=== PATIENT | female | born 1945 | race African-American/Black ===

== ENCOUNTER 2021-03-06 09:31 | Emergency (ER) | payer MEDICARE, MEDICAID ==
[~2021-03-06] VITALS: Ht 170.2 cm; Wt 86.5 kg
[2021-03-06] MEDS ORDERED: LABETALOL 5MG/ML SYR 20 MG/4 ML SYRINGE IV ONE (10:30)
[2021-03-06 10:54] LABS: BASOPHILS % 0.5 % (0.0-2.0); EOSINOPHILS % 0.2 % (0.0-5.0); LYMPHOCYTES % 19.8 % (20.0-50.0); MEAN CORPUSCULAR HEMOGLOBIN 26.8 pg (28.0-32.0); MEAN CORPUSCULAR VOLUME 82.4 fL (81.0-99.0); MONOCYTES % 4.1 % (2.0-8.0); NEUTROPHILS % 75.4 % (40.0-76.0); PLATELET 226 x1000/uL (130-400); RED BLOOD CELL COUNT 4.86 mill/uL (4.2-5.4); RED CELL DISTRIBUTION WIDTH 14.7 % (11.6-14.6)
[2021-03-06 11:04] LABS: CHLORIDE 107 mEq/L (98-107); INR 1.1; PROTHROMBIN TIME 11.3 sec (9.6-11.0)
[2021-03-06 11:08] LABS: ETHANOL BLOOD < 10 mg/dL
[2021-03-06 11:11] LABS: LDL CHOLESTEROL 58 mg/dL (5-100)
[2021-03-06] MEDS ORDERED: CONTAINER EMPTY IV NR ×2 (11:21→12:30)
[2021-03-06] MEDS ORDERED: ALTEPLASE IV NR ×2 (11:21→12:30)
[2021-03-06] MEDS ORDERED: *NO ASPIRIN X 24 HOURS XX SCH (11:21)
[2021-03-06] MEDS ORDERED: IOHEXOL-350 100 ML BOTTLE ONE (12:10)
[2021-03-06 12:15] VITALS: BP 155/99
[2021-03-06] MEDS ORDERED: ALTEPLASE 100MG/VIAL IV NR ×2 (12:30)
== END 2021-03-06 13:34 | disposition short-term general hospital (02) ==
LOC: EDBD 09:56 → ER 09:56 → CANBEDREQ 14:17
DX: I63.9 Cerebral infarction, unspecified (principal); I10 Essential (primary) hypertension; R77.8 Other specified abnormalities of plasma proteins; I11.0 Hypertensive heart disease with heart failure; I50.9 Heart failure, unspecified; E11.9 Type 2 diabetes mellitus without complications; Z98.890 Other specified postprocedural states
CPT/HCPCS: 36415; 70450; 70496; 70498; 71045; 80053; 80320; 82962; 83721; 84484; 85025; 85610; 93005; 96374; 99291; J2997; J3490; J7060; Q9967; 99285; G0480

== ENCOUNTER 2021-05-12 22:54 | Inpatient (IN) | payer MEDICARE, MEDICAID ==
[~2021-05-12] VITALS: Ht 167.6 cm; Wt 89.8 kg
[~2021-05-12 22:54] MED LIST: ASPI-1406 MT; CLON-457 PO; FURO-152 PO; METF-414 MT
[2021-05-13 00:27] LABS: BASOPHILS % 0.4 % (0.0-2.0); EOSINOPHILS % 1.6 % (0.0-5.0); HEMATOCRIT. 31.2 % (36.0-48.0); HEMOGLOBIN. 10.2 g/dL (12.0-16.0); MEAN CORPUSCULAR HEMOGLOBIN 26.7 pg (28.0-32.0); MEAN CORPUSCULAR VOLUME 81.9 fL (81.0-99.0); MEAN PLATELET VOLUME 9.2 fl (7.4-10.4); MONOCYTES % 4.7 % (2.0-8.0); NEUTROPHILS % 71.3 % (40.0-76.0); PLATELET 143 x1000/uL (130-400); RED BLOOD CELL COUNT 3.81 mill/uL (4.2-5.4); RED CELL DISTRIBUTION WIDTH 19.1 % (11.6-14.6)
[2021-05-13 00:32] LABS: CHLORIDE 106 mEq/L (98-107)
[2021-05-13 00:36] LABS: PARTIAL THROMBOPLASTIN TIME 28.5 sec (23.4-31.0)
[2021-05-13] MEDS ORDERED: HYDROCODONE/ACETAMINOPHEN 10/325MG TABLET PO SCH (00:45)
[2021-05-13 05:15] VITALS: BP 152/77
[2021-05-13 08:00] VITALS: BP 124/61
[2021-05-13 12:00] VITALS: BP 144/37
[2021-05-13] MEDS ORDERED: ONDANSETRON HCL 4MG/2ML INJ IV PRN (12:00)
[2021-05-13] MEDS ORDERED: DEXTROSE 50% WATER 50ML SYRINGE IV PRN (12:15)
[2021-05-13 16:00] VITALS: BP 155/90
[2021-05-13] MEDS: ENOXAPARIN 30MG/0.3ML SYR SUBCUT SCH (18:15)
[2021-05-13 19:14] LABS: INR 1.1; PROTHROMBIN TIME 11.6 sec (9.6-11.0)
[2021-05-13 20:00] VITALS: BP 145/66
[2021-05-13] MEDS: INSULIN LISPRO 100 UNITS/ML SUBCUT SCH (21:00)
[2021-05-13] MEDS: BLOOD SUGAR DIAGNOSTIC STRIP TEST SCH (21:11)
[2021-05-13] MEDS: PANTOPRAZOLE SODIUM 40 MG/VIAL IV SCH (21:39)
[2021-05-13] MEDS: SODIUM CHLORIDE 0.45% 1,000 ML IV SCH (21:40)
[2021-05-14 04:00] VITALS: BP 155/78
[2021-05-14 06:17] LABS: BASOPHILS % 0.4 % (0.0-2.0); EOSINOPHILS % 1.4 % (0.0-5.0); HEMATOCRIT. 27.3 % (36.0-48.0); HEMOGLOBIN. 8.8 g/dL (12.0-16.0); LYMPHOCYTES % 33.3 % (20.0-50.0); MEAN CORPUSCULAR HEMOGLOBIN 26.5 pg (28.0-32.0); MEAN CORPUSCULAR VOLUME 82.7 fL (81.0-99.0); MEAN PLATELET VOLUME 9.2 fl (7.4-10.4); NEUTROPHILS % 58.9 % (40.0-76.0); PLATELET 140 x1000/uL (130-400); RED CELL DISTRIBUTION WIDTH 18.7 % (11.6-14.6)
[2021-05-14] MEDS: BLOOD SUGAR DIAGNOSTIC STRIP TEST SCH ×3 (06:18→21:00)
[2021-05-14] MEDS: INSULIN LISPRO 100 UNITS/ML SUBCUT SCH ×3 (06:18→21:00)
[2021-05-14 08:00] VITALS: BP 118/62
[2021-05-14] MEDS: PANTOPRAZOLE SODIUM 40 MG/VIAL IV SCH ×3 (09:50→22:04)
[2021-05-14 12:00] VITALS: BP 148/80
[2021-05-14 12:28] LABS: LDL CHOLESTEROL 39 mg/dL (5-100)
[2021-05-14 12:31] LABS: HDL CHOLESTEROL 64 mg/dL (40-59)
[2021-05-14 12:35] LABS: PHOSPHORUS 3.1 mg/dL (2.5-4.9)
[2021-05-14 13:07] LABS: CHLORIDE 109 mEq/L (98-107)
[2021-05-14] MEDS: ENOXAPARIN 30MG/0.3ML SYR SUBCUT SCH (13:49)
[2021-05-14 16:00] VITALS: BP 149/78
[2021-05-14] MEDS ORDERED: FENTANYL CITRATE/PF 50MCG/ML 2ML VIAL ONE (16:12)
[2021-05-14] MEDS ORDERED: MIDAZOLAM HCL 5 MG/5 ML VIAL ONE (16:12)
[2021-05-14] MEDS ORDERED: MIDAZOLAM HCL 5 MG/5 ML VIAL IV PRN (16:13)
[2021-05-14 20:00] VITALS: BP 146/79
[2021-05-14] MEDS: SODIUM CHLORIDE 0.45% 1,000 ML IV SCH (22:05)
[2021-05-15 00:05] VITALS: BP 117/80
[2021-05-15] MEDS: BLOOD SUGAR DIAGNOSTIC STRIP TEST SCH ×4 (06:43→20:43)
[2021-05-15] MEDS: INSULIN LISPRO 100 UNITS/ML SUBCUT SCH ×4 (07:20→20:43)
[2021-05-15 08:00] VITALS: BP 140/74
[2021-05-15] MEDS: PANTOPRAZOLE SODIUM 40 MG/VIAL IV SCH ×2 (08:55→20:44)
[2021-05-15 10:13] LABS: BASOPHILS % 0.5 % (0.0-2.0); EOSINOPHILS % 2.3 % (0.0-5.0); HEMATOCRIT. 26.6 % (36.0-48.0); HEMOGLOBIN. 8.8 g/dL (12.0-16.0); LYMPHOCYTES % 34.2 % (20.0-50.0); MEAN CORPUSCULAR HEMOGLOBIN 27.4 pg (28.0-32.0); MEAN CORPUSCULAR VOLUME 83.1 fL (81.0-99.0); MEAN PLATELET VOLUME 9.3 fl (7.4-10.4); MONOCYTES % 8.4 % (2.0-8.0); NEUTROPHILS % 54.6 % (40.0-76.0); PLATELET 156 x1000/uL (130-400); RED BLOOD CELL COUNT 3.21 mill/uL (4.2-5.4); RED CELL DISTRIBUTION WIDTH 18.7 % (11.6-14.6)
[2021-05-15 12:00] VITALS: BP 160/67
[2021-05-15] MEDS: SODIUM CHLORIDE 0.45% 1,000 ML IV SCH (12:48)
[2021-05-15] MEDS: ENOXAPARIN 30MG/0.3ML SYR SUBCUT SCH (14:00)
[2021-05-15 16:00] VITALS: BP 174/77
[2021-05-15] MEDS ORDERED: AMLODIPINE 5MG TABLET GT NR (19:45)
[2021-05-15 20:00] VITALS: BP 165/75
[2021-05-16] VITALS: BP 128/82
[2021-05-16 04:00] VITALS: BP 140/60
[2021-05-16] MEDS: BLOOD SUGAR DIAGNOSTIC STRIP TEST SCH ×2 (06:35→12:20)
[2021-05-16 07:38] LABS: BASOPHILS % 0.5 % (0.0-2.0); EOSINOPHILS % 2.2 % (0.0-5.0); HEMATOCRIT. 30.2 % (36.0-48.0); HEMOGLOBIN. 9.6 g/dL (12.0-16.0); LYMPHOCYTES % 32.4 % (20.0-50.0); MEAN CORPUSCULAR HEMOGLOBIN 25.9 pg (28.0-32.0); MEAN CORPUSCULAR VOLUME 81.6 fL (81.0-99.0); MEAN PLATELET VOLUME 9.4 fl (7.4-10.4); MONOCYTES % 7.5 % (2.0-8.0); NEUTROPHILS % 57.4 % (40.0-76.0); PLATELET 197 x1000/uL (130-400); RED CELL DISTRIBUTION WIDTH 18.4 % (11.6-14.6)
[2021-05-16 08:00] VITALS: BP 129/66
[2021-05-16] MEDS: PANTOPRAZOLE SODIUM 40 MG/VIAL IV SCH (09:00)
[2021-05-16] MEDS: SODIUM CHLORIDE 0.45% 1,000 ML IV SCH (10:00)
[2021-05-16] MEDS: INSULIN LISPRO 100 UNITS/ML SUBCUT SCH ×2 (10:23→12:50)
[2021-05-16] MEDS ORDERED: POTASSIUM CHLORIDE 20MEQ/PACKET PO SCH (11:30)
[2021-05-16 12:00] VITALS: BP 174/91
[2021-05-16 12:36] VITALS: BP_SYST 115; BP_SYST 129; BP_DIAS 40; BP_DIAS 66
[2021-05-16 16:00] VITALS: BP 129/65
[2021-05-16 18:13] LABS: HEPATITIS B SURFACE ANTIGEN NEGATIVE
== END 2021-05-16 17:51 | DRG 393 ==
LOC: ER 23:07 → 6EST 05-13 01:47 → ENRESERV 05-13 02:41
PROVIDERS: ADMIT Family Medicine; ATTEND Family Medicine
PROC: 0DH63UZ Insertion of Feeding Device into Stomach, Percutaneous Approach (ICD-10-PCS; principal; 2021-05-14)
PROC: 5A1D70Z Performance of Urinary Filtration, Intermittent, Less than 6 Hours Per Day (ICD-10-PCS; 2021-05-14)
PROC: 5A1D70Z Performance of Urinary Filtration, Intermittent, Less than 6 Hours Per Day (ICD-10-PCS; 2021-05-16)
DX: K94.23 Gastrostomy malfunction (principal); E43 Unspecified severe protein-calorie malnutrition; N18.6 End stage renal disease; I13.2 Hypertensive heart and chronic kidney disease with heart failure and with stage 5 chronic kidney disease, or end stage renal disease; G93.40 Encephalopathy, unspecified; I69.351 Hemiplegia and hemiparesis following cerebral infarction affecting right dominant side; D64.9 Anemia, unspecified; E11.22 Type 2 diabetes mellitus with diabetic chronic kidney disease; F03.90 Unspecified dementia, unspecified severity, without behavioral disturbance, psychotic disturbance, mood disturbance, and anxiety; I25.10 Atherosclerotic heart disease of native coronary artery without angina pectoris; I50.9 Heart failure, unspecified; J44.9 Chronic obstructive pulmonary disease, unspecified; K29.70 Gastritis, unspecified, without bleeding; R13.12 Dysphagia, oropharyngeal phase; Z20.822 Contact with and (suspected) exposure to COVID-19; Z68.32 Body mass index [BMI] 32.0-32.9, adult; Z79.899 Other long term (current) drug therapy; Z86.19 Personal history of other infectious and parasitic diseases; Z99.2 Dependence on renal dialysis; Z79.82 Long term (current) use of aspirin; Z79.84 Long term (current) use of oral hypoglycemic drugs
CPT/HCPCS: 36415; 76770; 80048; 80053; 80061; 82962; 83036; 84100; 85025; 86705; 86709; 86803; 87340; 87426; 99285; C9113; J1650; J1815; J2250; J3010